=== PATIENT | male | born 1945 | race Caucasian/White ===

== ENCOUNTER 2020-02-11 07:37 | Day surgery (SDC) | payer MEDICARE ==
[2020-02-04 15:59] LABS: BASOPHILS % (AUTO) 0.5 % (0-1); EOSINOPHILS # (AUTO) 0.2 X10'3 (0-0.9); EOSINOPHILS % (AUTO) 3.5 % (0-6); LYMPHOCYTES # (AUTO) 1.3 X10'3 (1.1-4.8); LYMPHOCYTES % (AUTO) 28.7 % (21-51); MEAN CORPUSCULAR HEMOGLOBIN 28.7 PG (27.0-31.0); MEAN CORPUSCULAR HGB CONC 32.9 g/dL (33.0-36.5); MEAN PLATELET VOLUME 9.3 FL (7.4-10.4); MONOCYTES # (AUTO) 0.5 X10'3 (0-0.9); MONOCYTES % (AUTO) 12.2 % (2-12); NEUTROPHILS # (AUTO) 2.5 X10'3 (1.8-7.7); NEUTROPHILS % (AUTO) 55.1 % (42-75); PRE OP HEMATOCRIT 45.3 % (42.0-52.0); PRE OP HEMOGLOBIN 14.9 g/dL (14.0-17.9); PRE OP PLATELET COUNT 204 X10'3 (140-440); RED CELL DISTRIBUTION WIDTH 13.8 % (11.5-14.5)
[2020-02-04 16:13] LABS: ALBUMIN/GLOBULIN RATIO 1.3 (1.1-1.5); ALKALINE PHOSPHATASE 96 IU/L (46-116); BLOOD UREA NITROGEN 14 MG/DL (7-18); BUN/CREATININE RATIO 10.9 (5.4-32.0); CALCIUM 8.7 MG/DL (8.5-10.1); CHLORIDE 107 MMOL/L (99-107); CREATININE 1.29 MG/DL (0.60-1.10); PRE OP ALT 17 U/L (30-65); PRE OP ANION GAP 1 (8-16); PRE OP AST 17 U/L (10-37); PRE OP BILIRUB, TOTAL 0.6 MG/DL (0.0-1.0); PRE OP GLUCOSE 74 MG/DL (70-104); PRE OP POTASSIUM 3.6 MMOL/L (3.4-5.1); PRE OP SODIUM 141 MMOL/L (135-145); TOTAL CARBON DIOXIDE 32.7 MMOL/L (24-32); TOTAL PROTEIN 7.1 G/DL (6.4-8.2); eGFR 54 ML/MIN
[2020-02-11] VITALS (14 sets, daily range): BP systolic 130–165; BP diastolic 74–98
[~2020-02-11] VITALS: Ht 180.3 cm; Wt 79.0 kg
[~2020-02-11 07:37] MED LIST: ATOR-2 PO; BUPIVAcaine/PF 2.5 mg/ml (0.25%) 30ml vial ONE; GABA600T13 PO; HYDR-3964 PO; LEVO75TA7 PO; LIDOcaine 1% 30ml preserv. free vial ONE; MELO-100 PO; METH-350 PO; TERA10CA4 PO; ZOLP12.543 PO; ceFAZolin 2gm in dextrose, iso 50 ML IV ONE; famotidine 20mg tablet PO ONE; ringers solution, lacted 1,000 ML IV SCH
[2020-02-11] MEDS ORDERED: ondansetron/PF 4mg/2ml inj ONE (10:47)
[2020-02-11] MEDS ORDERED: sevoflurane 250ml liquid IH ONE (10:47)
[2020-02-11] MEDS ORDERED: midazolam 2 mg/2 ml injection ONE (10:50)
[2020-02-11] MEDS ORDERED: fentaNYL/PF 50MCG/1 ML 2ML syringe ONE (10:50)
[2020-02-11] MEDS ORDERED: propofol inj 20 ML IV ONE (10:52)
[2020-02-11] MEDS ORDERED: rocuronium 10mg/ml inj IV ONE (10:53)
[2020-02-11] MEDS ORDERED: hydrALAZINE 20mg/ml inj. IV ONE (11:16)
[2020-02-11] MEDS ORDERED: ringers solution, lacted 1,000 ML IV SCH (11:33)
[2020-02-11] MEDS ORDERED: ondansetron/PF 4mg/2ml inj IV PRN (11:35)
[2020-02-11] MEDS ORDERED: proCHLORperazine 10 MG/2 ml inj IV PRN (11:35)
[2020-02-11] MEDS ORDERED: meperidine/PF 25mg/ml syringe IV PRN ×3 (11:35)
[2020-02-11] MEDS ORDERED: morphine 4 MG/ML inj SYRINge IV PRN (11:35)
[2020-02-11] MEDS ORDERED: morphine 2 MG/ML inj. syringe IV PRN (11:35)
[2020-02-11] MEDS ORDERED: glycopyrrolate 0.2mg/ml inj ONE (12:01)
[2020-02-11] MEDS ORDERED: dexamethasone sod phosphate 4mg/ml inj. ONE (12:01)
[2020-02-11] MEDS ORDERED: neostigmine methylsulfate 1 MG/ML 10ml vial ONE (12:01)
--- NOTE | 2020-02-11 12:18 | NUR ---
Received from OR via , accompanied by Anesthesiologist DR NGO and report given by Anesthesiolgist. AWAKENS TO VOICE. VITALS STABLE. DRESSINGS DI. SARA PAIN.
[2020-02-11] MEDS ORDERED: HYDROcodone/acetaminophen 5mg/325mg tablet PO PRN (12:20)
--- NOTE | 2020-02-11 16:00 | NUR ---
16FR BRENNAN CATHETER INSERTED. BALLON FILED WITH 10CC WATER AFTER GOOD URINE RETURN NOTED.
--- NOTE | 2020-02-11 16:38 | NUR ---
AWAKE AND ORIENTED. VITALS STABLE. DRESSINGS DI. SARA PAIN. HOME WITH A FRIEND AT THIS TIME.
== END 2020-02-11 16:38 | disposition home or self-care (01) ==
LOC: PAS 07:37
PROVIDERS: ATTEND Surgery
PROC: 8E0W0CZ Robotic Assisted Procedure of Trunk Region, Open Approach (ICD-10-PCS; 2020-02-11)
PROC: 0WUF0JZ Supplement Abdominal Wall with Synthetic Substitute, Open Approach (ICD-10-PCS; principal; 2020-02-11 10:47)
DX: K40.20 Bilateral inguinal hernia, without obstruction or gangrene, not specified as recurrent (principal); M35.3 Polymyalgia rheumatica; R10.9 Unspecified abdominal pain
CPT/HCPCS: 36415; 49585; 80053; 82948; 85025; 93005; 93306; C1781; J0360; J1100; J2001; J2250; J2405; J2704; J2710; J3010; J3490; J7120; U0003; A4215; A4618; A7000

== ENCOUNTER 2020-05-13 08:02 | Emergency (ER) | payer MEDICARE ==
[~2020-05-13] VITALS: Ht 177.8 cm; Wt 77.3 kg
[~2020-05-13 08:02] MED LIST changes: +ASPI-1 PO; -ATOR-2 PO; +AZIT500T9 PO; -BUPIVAcaine/PF 2.5 mg/ml (0.25%) 30ml vial ONE; -LIDOcaine 1% 30ml preserv. free vial ONE; +ONQPUMP ADDCANAL; +ZOLP10TA PO; -ZOLP12.543 PO; -ceFAZolin 2gm in dextrose, iso 50 ML IV ONE; -famotidine 20mg tablet PO ONE; -ringers solution, lacted 1,000 ML IV SCH
[2020-05-13] MEDS ORDERED: LIDOcaine 2% 10ml TOPICAL JELLY (Urojet) MM ONE (08:20)
[2020-05-13] MEDS ORDERED: LIDOcaine 2% 10ml TOPICAL JELLY (Urojet) TP ONE (08:25)
[2020-05-13] MEDS ORDERED: FLO0.4C PO (08:57)
--- NOTE | 2020-05-13 08:58 | NUR ---
EMPTIED URINE BAG [address] URINE OUT[address] DR LAZO.
[2020-05-13 09:24] VITALS: BP 137/86
== END 2020-05-13 09:34 | disposition home or self-care (01) ==
LOC: ER 08:03
DX: R33.9 Retention of urine, unspecified (principal); E78.00 Pure hypercholesterolemia, unspecified; I10 Essential (primary) hypertension; E03.9 Hypothyroidism, unspecified; G89.29 Other chronic pain; Z98.890 Other specified postprocedural states; Z91.010 Allergy to peanuts; Z79.82 Long term (current) use of aspirin; Z79.2 Long term (current) use of antibiotics; Z79.899 Other long term (current) drug therapy
CPT/HCPCS: 51702; 99284